=== PATIENT | female | born 1965 | race Hispanic/Latino ===

== ENCOUNTER 2018-03-09 12:25 | Outpatient (CLI) | payer MEDICARE ==
--- NOTE | 2018-03-10 07:18 | XRay Report ---
FINAL REPORT EXAM: XR CHEST ROUTINE 2V HISTORY: COAGULATION DEFECT/ DISORDER IRON METABOLISM/ANEMIA TECHNIQUE: 2 views of the chest. PRIORS: None. FINDINGS: The cardiomediastinal silhouette appears normal. The lungs are clear. The bones and soft tissues are unremarkable. IMPRESSION: No evidence of acute cardiopulmonary disease
== END 2018-03-09 12:26 | disposition home or self-care (01) ==
LOC: SPVIMAG 12:25
PROVIDERS: ATTEND Internal Medicine Hematology & Oncology
DX: D72.829 Elevated white blood cell count, unspecified (principal); D68.9 Coagulation defect, unspecified; E83.19 Other disorders of iron metabolism; D63.1 Anemia in chronic kidney disease; R22.1 Localized swelling, mass and lump, neck
CPT/HCPCS: 71046